=== PATIENT | female | born 1990 | race Caucasian/White ===

== ENCOUNTER 2022-03-17 09:30 | Outpatient (CLI) | payer OTHER, SELFPAY | END 2022-03-17 09:31 | disposition home or self-care (01) | LOC: CHSLAB 09:39 | DX: N97.0 Female infertility associated with anovulation (principal) | CPT/HCPCS: 36415; 84144 ==

== ENCOUNTER 2022-12-29 11:21 | Outpatient (CLI) | payer OTHER, SELFPAY ==
[2022-12-29 11:51] LABS: Basophils Absolute Auto 0.03 K/mm3 (0.00-0.10); Basophils Percent Auto 0.3 % (0.0-1.0); Eosinophils Absolute Auto 0.14 K/mm3 (0.02-0.50); Eosinophils Percent Auto 1.4 % (1.0-6.0); Hematocrit 27.8 % (35.0-49.0); Immature Granulocyte Absolute 0.05 K/mm3 (0.00-0.00); Immature Granulocyte Percent A 0.5 % (0.0-0.0); Lymphocytes Absolute Auto 2.04 K/mm3 (1.10-4.50); Lymphocytes Percent Auto 20.1 % (18.0-42.0); Mean Corpuscular HGB Conc 32.4 g/dL (32.0-36.0); Mean Corpuscular Hemoglobin 30.1 pg (27.0-31.0); Mean Platelet Volume 8.4 fl (9.2-11.8); Monocytes Percent Auto 5.9 % (2.0-11.0); Neutrophils Absolute Auto 7.3 K/mm3 (1.7-7.2); Neutrophils Percent Auto 71.8 % (50.0-70.0); Platelet Count Result 433 K/mm3 (150-420); Red Blood Count 2.99 M/mm3 (4.20-5.40); Red Cell Distribution Width 13.6 % (11.6-14.4); White Blood Count 10.2 K/mm3 (4.8-10.8)
== END 2022-12-29 11:22 | disposition home or self-care (01) ==
DX: D64.9 Anemia, unspecified (principal)
CPT/HCPCS: 36415; 85025